=== PATIENT | male | born 1980 | race Caucasian/White ===

== ENCOUNTER 2020-07-06 07:32 | Emergency (ER) | payer OTHER ==
[2020-07-06 08:24] LABS: BASOPHIL 0.2 % (0-2); EOSINOPHIL 0.9 % (0-5); HCT 48.7 % (42.0-52.0); HGB 16.5 g/dl (13.2-18.0); LYMPHOCYTE 29.1 % (15-48); MCH 30.2 pg (25.0-31.0); MCHC 33.9 g/dL (32.0-36.0); MCV 89.2 fL (78.0-100.0); MONOCYTE 6.5 % (0-12); NEUTROPHIL 62.9 % (41-80); NRBC 0; PLT 259 K/uL (150-400); RBC 5.46 M/uL (4.70-6.00); RDW 13.5 % (11.5-14.0); WBC 12.8 K/uL (4.0-10.5)
[2020-07-06 08:42] LABS: BUN/CREAT RATIO (CALC) 17.1 RATIO; CREATININE 0.76 mg/dL (0.67-1.17); POTASSIUM 3.4 mmol/L (3.5-5.1)
[2020-07-06 09:00] LABS: CORONAVIRUS 2019 SARS-COV-2 POSITIVE (NEGATIVE)
[2020-07-06 09:33] LABS: INFLUENZA A NAA NEGATIVE (NEGATIVE)
[2020-07-06] MEDS ORDERED: MEDROL 4MG DOSEP4 MG PO (09:51)
[2020-07-06] MEDS ORDERED: ROBITUSSIN W/COD5 ML PO (09:51)
[2020-07-06] MEDS ORDERED: ZPAK PO (09:51)
== END 2020-07-06 10:00 | disposition home or self-care (01) ==
LOC: FER 07:32
PROVIDERS: Emergency Medicine
DX: U07.1 COVID-19 (principal); K42.9 Umbilical hernia without obstruction or gangrene; F17.210 Nicotine dependence, cigarettes, uncomplicated; Z88.6 Allergy status to analgesic agent
CPT/HCPCS: 36415; 80048; 85025; 87880; U0002

== ENCOUNTER → 2021-07-23 | Day surgery (SDC) | payer OTHER ==
[~2021-07-23] VITALS: Ht 170.2 cm; Wt 83.9 kg
[~2021-07-23] MED LIST: DICLOFENAC SODI75 MG PO; MEDROL 4MG DOSEP4 MG PO; OMEPRAZOLE40 MG PO; ROBITUSSIN W/COD5 ML PO; ZPAK PO
[2021-07-23 09:31] LABS: HCT 51.1 % (42.0-52.0); HGB 17.6 g/dl (13.2-18.0); MCH 30.7 pg (25.0-31.0); MCHC 34.4 g/dL (32.0-36.0); MPV 10.1 fL (6.0-9.5); RBC 5.74 M/uL (4.70-6.00); RDW 12.9 % (11.5-14.0); WBC 10.7 K/uL (4.0-10.5)
[2021-07-23 09:51] LABS: ALBUMIN 3.9 g/dL (3.4-5.0); BILIRUBIN - TOTAL 0.5 mg/dL (0.2-1.0); BUN/CREAT RATIO (CALC) 9.3 RATIO; CREATININE 0.86 mg/dL (0.67-1.17); GLOBULIN (CALCULATION) 3.6 g/dL; POTASSIUM 4.1 mmol/L (3.5-5.1); TOTAL PROTEIN 7.5 g/dL (6.4-8.2)
== END | disposition home or self-care (01) ==
LOC: FIS 07:37 → FAS 07:37
PROVIDERS: Surgery
DX: K58.2 Mixed irritable bowel syndrome (principal); K29.80 Duodenitis without bleeding; K22.70 Barrett's esophagus without dysplasia; K20.80 Other esophagitis without bleeding; K29.60 Other gastritis without bleeding; K25.9 Gastric ulcer, unspecified as acute or chronic, without hemorrhage or perforation; F17.210 Nicotine dependence, cigarettes, uncomplicated; Z88.6 Allergy status to analgesic agent
CPT/HCPCS: 36415; 76705; 80053; J2250; J2704; J7120